=== PATIENT | female | born 1995 | race Caucasian/White ===

== ENCOUNTER → 2019-04-13 | Outpatient (CLI) | payer OTHER ==
--- NOTE | 2019-04-13 08:52 | REP ---
MR lumbar spine without contrast History: Back pain Decreased signal intensity on T2-weighted images is present in the L5-L1 intervertebral disc. This represents disc degeneration. There is no disc bulge or herniation at the L1-2 through L4-5 levels. The nerves exit the neural foramina without compression. A diffuse disc bulge is present at the L5-L1 level. There is minimal compression of the thecal sac. The L5 nerves exit the neural foramina without compression. The conus medullaris is normal in appearance terminating at the level of the T12-L1 intervertebral disc. Increased signal intensity on T2-weighted images is present in the endplates of the L5 and S1 vertebral bodies. This represents degenerative change. Impression: Diffuse disc bulge at the L5-L1 level with minimal thecal sac compression. Electronically Signed by Sandoval Boone MD 04/13/2019 08:43 A
== END ==
LOC: M RAD 07:34
PROVIDERS: ATTEND Family Medicine
DX: M51.26 Other intervertebral disc displacement, lumbar region (principal)